=== PATIENT | female | born 1950 | race Caucasian/White ===

== ENCOUNTER 2019-05-21 17:58 | Emergency (ER) | payer OTHER ==
[~2019-05-21] VITALS: Ht 170.1 cm; Wt 109.3 kg
[2019-05-21] MEDS ORDERED: HUMULIN 70100 UNIT/2 SQ (20:59)
[2019-05-21] MEDS ORDERED: TYLENOL EXTRA500 MG PO (20:59)
== END 2019-05-21 21:45 | disposition short-term general hospital (02) ==
LOC: ED 17:58
DX: S72.141A Displaced intertrochanteric fracture of right femur, initial encounter for closed fracture (principal); M25.551 Pain in right hip; M25.561 Pain in right knee; M79.671 Pain in right foot; E11.9 Type 2 diabetes mellitus without complications; J45.909 Unspecified asthma, uncomplicated; Z88.8 Allergy status to other drugs, medicaments and biological substances; Z88.2 Allergy status to sulfonamides; Z88.5 Allergy status to narcotic agent; Z91.041 Radiographic dye allergy status; Z91.013 Allergy to seafood; Z88.7 Allergy status to serum and vaccine; Z79.4 Long term (current) use of insulin; Z90.49 Acquired absence of other specified parts of digestive tract; W01.198A Fall on same level from slipping, tripping and stumbling with subsequent striking against other object, initial encounter; Y93.01 Activity, walking, marching and hiking; Y92.89 Other specified places as the place of occurrence of the external cause; Y99.8 Other external cause status